=== PATIENT | female | born 1990 | race Caucasian/White ===

== ENCOUNTER 2024-11-20 09:09 | Emergency (ER) | payer OTHER ==
[~2024-11-20] VITALS: Ht 167.6 cm; Wt 160.0 kg
[2024-11-20 09:47] LABS: BASOPHILS 0.8 % (0.1-1.2); EOSINOPHILS 2.1 % (0.7-5.8); LYMPHOCYTES 30.4 % (19.3-51.7); MCH 31.6 PG (25.6-32.2); MCHC 33.8 g/dL (32.2-35.5); MCV 93.4 fL (79.4-94.8); MONOCYTES 5.1 % (4.7-12.5); NEUTROPHILS 61.3 % (34.0-71.1); RBC 4.24 M/uL (3.93-5.22)
[2024-11-20 10:20] LABS: ABO O; RH NEGATIVE
[2024-11-20 10:21] LABS: ALT (SGPT) 14.0 U/L (14-59); AST (SGOT) 11.0 U/L (15-37); GLOMERULAR FILTRATION RATE,EST 125.0 mL/min (>60); PROTEIN, TOTAL 7.1 g/dL (6.4-8.2); UREA NITROGEN 19.0 mg/dL (7-18)
[2024-11-20 10:41] LABS: BLOOD/HGB, URINE SMALL (Negative); KETONE, URINE NEGATIVE (Negative); LEUK ESTERASE, URINE NEGATIVE (negative); NITRITE, URINE NEGATIVE (negative)
[2024-11-20 10:51] LABS: BACTERIA, URINE NONE SEEN /hpf (negative); CASTS, URINE NONE SEEN \\lpf; CRYSTALS, URINE NONE SEEN (0-1+); EPITHELIAL CELLS, URINE SQUAMOUS 1+ /lpf (0-1+); REFLEX CULTURE, URINE No (No)
[2024-11-20] MEDS ORDERED: RHO(D) IMMUNE GLOBULIN 1,500 UNIT/2 ML ML IM ONE (11:00)
[2024-11-20 11:52] VITALS: BP 109/64
== END 2024-11-20 11:53 | disposition home or self-care (01) ==
LOC: ED 09:09
PROVIDERS: Emergency Medicine
DX: O20.0 Threatened abortion (principal); O26.891 Other specified pregnancy related conditions, first trimester; D36.7 Benign neoplasm of other specified sites; Z3A.01 Less than 8 weeks gestation of pregnancy
CPT/HCPCS: 36415; 76801; 76817; 80053; 81001; 84702; 85025; 86900; 86901; 96372; 99284-25; J2790

== ENCOUNTER 2025-02-06 09:38 | Day surgery (SDC) | payer OTHER ==
[~2025-02-06] VITALS: Ht 167.6 cm; Wt 82.0 kg
[2025-02-06] VITALS (8 sets, daily range): BP systolic 104–135; BP diastolic 61–78
[~2025-02-06 09:38] MED LIST: IBLOOD GLUCOSE TEST STRIP 1 EA TEST VI PRN; LACTATED RINGER'S 1,000 ML IV SCH; LIDOCAINE HCL 1% 5 ML SDV INJ ONE; PRENATAL MULTI PO; SEVOFLURANE 250 ML BTL INH ONE; TRIAMCINOLONE A15 G1 TOP
--- NOTE | 2025-02-06 13:37 | NUR ---
PT LAYING IN BED AWAKE. PT UPDATED ON SURGERY WAIT TIME. NO OTHER NEEDS AT THIS TIME. CALL LIGHT WITHIN REACH. PT'S DAD IN ROOM WITH PT.
--- NOTE | 2025-02-06 16:52 | NUR ---
LE 1501-PT LAYING IN BED AWAKE. PT UPDATED ON SURGERY WAIT TIME. NO OTHER NEEDS AT THIS TIME. FAMILY IN ROOM. CALL LIGHT WITHIN REACH.
--- NOTE | 2025-02-06 16:53 | NUR ---
PT LAYING IN BED AWAKE. NEW BAG OF LR INFUSING. PT AND FAMILY UPDATED ON WAIT TIME. NO OTHER NEEDS AT THIS TIME. PT STATES WAS UP USING THE RESTROOM "10 MINUTES AGO". CALL LIGHT WITHIN REACH.
[2025-02-06] MEDS ORDERED: NALOXONE HCL 0.4 MG SYR IV PRN ×2 (17:15→20:15)
[2025-02-06] MEDS ORDERED: IBLOOD GLUCOSE TEST STRIP 1 EA TEST VI PRN (17:15)
[2025-02-06] MEDS ORDERED: fentaNYL citrate 50 MCG/ML SDV IV PRN (17:15)
[2025-02-06] MEDS ORDERED: LIDOCAINE HCL 2% 5 ML SDV ONE (17:57)
[2025-02-06] MEDS ORDERED: ROCURONIUM BROMIDE 50 MG/5 ML SYR ONE (17:57)
[2025-02-06] MEDS ORDERED: fentaNYL citrate 100 MCG/2 ML VIAL ONE (17:57)
[2025-02-06] MEDS ORDERED: ATROPINE SULFATE 1 MG/ML VIAL ONE (18:44)
[2025-02-06] MEDS ORDERED: NEOSTIGMINE METHYLSULFATE 1 MG/ML ONE (18:57)
[2025-02-06] MEDS ORDERED: LACTATED RINGER'S 1,000 ML IV ONE (19:04)
[2025-02-06] MEDS ORDERED: ACETAMINOPHEN 1,000 MG/100 ML VIAL ONE (19:48)
--- NOTE | 2025-02-06 20:08 | NUR ---
02/06/252007 Lucrecia Hua 1946: PT ARRIVES TO PACU AWAKE AND REACTIVE. SHE IS CONNECTED TO MONITORS. SHE IS REPORTING NO PAIN, BUT DOES HAVE NAUSEA. OSWALD 1951: OXYGEN TURNED OFF. OSWALD 1954: PT GIVEN ZOFRAN FOR NAUSEA. OSWALD 1999: DR. COVINGTON AT THE BEDSIDE TO PERFORM ULTRASOUND. HEART TONES 145. OSWALD 2005: PT'S REPORTING FEELING LIKE HER BLADDER IS FULL, SHE IS EDUCATED THAT SHE DOES A TREVINO IN PLACE AND THAT CAN SOMETIMES MAKE YOU FEEL LIKE YOU HAVE TO PEE. SHE IS ALSO REPORTING CRAMPING ALONG THE LOWER ABDOMEN - SHE IS EDUCATED THAT HER BELLY WAS INFLATED WITH AIR THAT COULD BE CONTRIBUTING TO HER CRAMPING, PASSING GAS AND BLECHING WILL HELP ELIVIATE THE GAS.
[2025-02-06] MEDS ORDERED: OXYCODONE/APAP 5/325 TAB PO PRN (20:15)
[2025-02-06] MEDS ORDERED: SIMETHICONE 80 MG CHEW PO PRN (20:15)
[2025-02-06] MEDS ORDERED: PROCHLORPERAZINE EDISYLATE 10 MG/2 ML VIAL IV PRN (20:15)
[2025-02-06] MEDS ORDERED: FAMOTIDINE 20 MG/ 2 ML VIAL IV PRN (20:15)
[2025-02-06] MEDS ORDERED: MAGNESIUM HYDROXIDE/AL HYDROX 30 ML CUP PO PRN (20:15)
--- NOTE | 2025-02-06 20:40 | NUR ---
pt ARRIVED TO THE FLOOR WITH TREVINO INTACT. pt C/O 07/21 PAIN. pt STATES THAT IS TOLERABLE AT THIS TIME. CPOX PLACED ON pt. IV ASSESSED, WNL. pt DENIES ANY OTHER NEEDS AT THIS TIME. CALL LIGHT WITHIN REACH. ICE WATER GIVEN. CRACKERS GIVEN. BANDADES INTACT WITH MINIMAL DRAINAGE. REPORT RECEIVED FROM HIDE CURER.
[2025-02-06] MEDS ORDERED: SIMETHICONE 80 MG CHEW PO SCH (21:00)
--- NOTE | 2025-02-06 21:45 | NUR ---
IN RM TO DO VITAL SIGNS. BELINDA BAILEY'D PER MD ORDER. SNACK PROVIDED TO pt. pt DENIES ANY OTHER NEEDS AT THIS TIME. CALL LIGHT WITHIN REACH.
--- NOTE | 2025-02-06 22:45 | NUR ---
IN RM TO DO VITAL SIGNS. pt UP TO THE BR. SBA, pt DENIES DIZINESS AT THIS TIME. pt PEED 600mL. SANDWICH BOX PROVIDED. pt DENIES ANY OTHER NEEDS AT THIS TIME.
--- NOTE | 2025-02-07 00:05 | NUR ---
DISCHARGE INSTRUCTIONS GIVEN pt UNDERSTOOD. pt DENIES ANY NEEDS AT THIS TIME. pt UP IN THE RM TO GET DRESSED. pt DENIES ANY OTHER NEEDS AT THIS TIME. CALL LIGHT WITHIN REACH.
--- NOTE | 2025-02-12 13:15 | PATH ---
[facility] [address], [place] [address] Signed SPECIMEN(S): A R OVARY, TUBE AND DERMOID CYST SPECIMEN SOURCE: Valery R OVARY, TUBE AND DERMOID CYST CLINICAL HISTORY: With no medical history provided on the requisition FINAL PATHOLOGIC DIAGNOSIS: Right ovary, tube and dermoid cyst: - Mature cystic teratoma. Negative for atypical features or evidence of malignancy. - Segment of benign oviduct. [facility] MICROSCOPIC EXAMINATION: Histologic sections of all submitted blocks are examined by light microscopy. These findings, together with the gross examination, support the pathologic diagnosis. GROSS DESCRIPTION: The specimen, labeled and designated "John, right ovary, tube and dermoid cyst," is received in formalin and consists of a fragmented, 8 g, 4 x 2.7 x 0.4 cm ovary with attached cyst and fallopian tube. The cyst is 8.5 x 7.9 x 0.5 cm and has an average wall thickness of 0.3 cm. Within the cyst there is a copious amount of morales-white sebaceous material and matted black hair. On the cyst wall there is a 4.5 x 3.2 x 0.7 cm area of induration and thickening. Sectioning through the indurated area reveals a 0.9 x 0.5 x 0.5 cm white, firm possible tooth. There is also a smooth-walled, 1.2 x 1 x 1 cm cyst within the area of induration. No papillary excrescences are grossly identified within the cyst wall, and the cyst wall averages 0.1 cm. Sectioning through the remaining cyst reveals a homogenous space. Sectioning through the ovary reveals a morales-brown homogenous cut surface with no cysts grossly identified. The attached fallopian tube is 6.1 x 1.3 x 0.5 cm with attached fimbria. The serosa is-purple, smooth and dusky. Sectioning reveals a patent lumen. No lesions are gross identified on the cut surface. [employer] Project Manager sections are submitted in cassettes A1-A5. Cassette Summary: PATIENT NAME: SUJATHA COREY PATHOLOGY DATE OF : 89 REPORT #: [id number] PHYSICIAN: [facility] PCP: NO PRIMARY CARE PHYSICIAN REPORT IS CONFIDENTIAL AND NOT TO BE RELEASED WITHOUT AUTHORIZATION [facility] [address], [place] [address] Signed (A1) ovary (A2-A3) area of induration and cyst wall (A4) technical service representative sections of cyst wall (A5) technical service representative sections of fallopian tube and entire fimbria EO (under the direct supervision of a pathologist) The Gross Description was prepared using a voice recognition system. The report was reviewed for accuracy; however, sound-alike word errors, addition and/or deletions may occur. If there is any question about this report, please contact Client Services. ADDITIONAL NOTES: Immunohistochemical and/or in situ hybridization studies if performed in this case included appropriate positive controls that reacted as expected. This test was developed and its performance characteristics determined by [facility]. It has not been cleared or approved by the U.S. Food and Drug Administration. The FDA has determined that such clearance or approval is not necessary. This test is used for clinical purposes. It should not be regarded as investigational or for research. [facility] is certified under the Clinical Laboratory Improvement Amendments of 1988 (CLIA) as qualified to perform high complexity clinical laboratory testing. PERFORMING LABORATORY: Technical component was performed by [facility], [address] [place] [id number] (CLIA# [id number]). Professional interpretation was performed by [facility] [place] [facility] - [address] [place] [address] (CLIA#: [id number]). Diagnostician: Albert Esqueda MD Pathologist Electronically Signed 02/12/2025 Copies: ~ PATIENT NAME: SUJATHA COREY PATHOLOGY DATE OF : [birth year] REPORT #: [id number] PHYSICIAN: [facility] PCP: NO PRIMARY CARE PHYSICIAN REPORT IS CONFIDENTIAL AND NOT TO BE RELEASED WITHOUT AUTHORIZATION
== END 2025-02-07 | disposition home or self-care (01) ==
LOC: DS 09:38 → MS 20:18 → DS 02-07
PROVIDERS: ATTEND Obstetrics & Gynecology
PROC: 0UT04ZZ Resection of Right Ovary, Percutaneous Endoscopic Approach (ICD-10-PCS; 2025-02-06)
PROC: 0UT54ZZ Resection of Right Fallopian Tube, Percutaneous Endoscopic Approach (ICD-10-PCS; principal; 2025-02-06 12:45)
DX: O99.891 Other specified diseases and conditions complicating pregnancy (principal); D27.0 Benign neoplasm of right ovary; Z3A.16 16 weeks gestation of pregnancy; Z79.899 Other long term (current) drug therapy
CPT/HCPCS: 00840; 94762; J0131; J0461; J2003; J2405; J2704; J2710; J3010; J3490; J7121